=== PATIENT | female | born 1995 | race Caucasian/White ===

== ENCOUNTER 2016-07-02 10:39 | Emergency (ER) | payer OTHER ==
[2016-07-02 11:02] VITALS: BP 112/60
--- NOTE | 2016-07-02 11:08 | ER Document Report ---
ED Medical Screen (RME) - General Stated Complaint: BACK,NECK PAIN Notes: She states initial injury occurred 2 months ago. Patient has been seen by [facility]ropractor. Patient was also seen by the emergency room at [facility]. Since June 28 she has been having increased pain which is radiating down her legs. Patient states she has also missed her period , home test was negative. I have greeted and performed a rapid initial assessment of this patient. A comprehensive ED assessment and evaluation of the patient, analysis of test results and completion of the medical decision making process will be conducted by additional ED providers. - Related Data Allergies/Adverse Reactions: No Known Allergies Allergy (Unverified 07/02/16 11:07) Physical Exam - Vital signs Vitals: Temp Pulse Resp BP Pulse Ox 98.7 F 61 20 112/60 100 07/02/16 11:01 07/02/16 11:01 07/02/16 11:01 07/02/16 11:01 07/02/16 11:01 Course - Vital Signs Vital signs: Temp Pulse Resp BP Pulse Ox 98.7 F 61 20 112/60 100 07/02/16 11:01 07/02/16 11:01 07/02/16 11:01 07/02/16 11:01 07/02/16 11:01
--- NOTE | 2016-07-02 12:34 | ER Document Report ---
ED General - General Chief Complaint: Back Pain Stated Complaint: BACK,NECK PAIN Mode of Arrival: Ambulatory Information source: Patient Notes: Patient presents with multiple complaints today. Patient states that she was doing yoga with her spouse 2 months ago and was dropped hitting her neck and head on the floor. Patient states that she did not initially have any loss of consciousness. Patient states she has had pain to the neck off and on since that fall. Patient did see a primary doctor a week after the injury and saw a chiropractor for the same issue 5 days ago. Patient also reports that she has had joint pain to the small joints of her hands and feet over the past week, and occasional shooting pains down by lateral lower extremities. Patient complains of foot pain with standing only that resolves when she takes the weight off of her feet. Patient reports headache, fatigue and dizziness off and on for the past year and a half. Patient reports she had a rash to her chest that has resolved today. Patient additionally reports some night sweats off and on over the past year and a half as well. Patient denies any fever, cough, cold symptoms, or abdominal pain. She does report recent travel to [place] and return to week ago, but states most of her symptoms started prior to her trip out of country. TRAVEL OUTSIDE OF THE [place] IN LAST 30 DAYS: Yes COUNTRY TRAVELED TO/FROM: [facility] - [facility] Onset: Other - Neck pain 2 months, leg pain for 1 week, dizziness, night sweats for the past year and a half Onset/Duration: Waxing and waning Quality of pain: Burning Pain Level: 4 Associated symptoms: Body/muscle aches, Headache, Sweating. denies: Nonproductive cough, Productive cough, Diarrhea, Fever, Nausea, Vomiting, Shortness of breath - Night sweats Exacerbated by: Standing - Foot pain worse with standing Relieved by: Sitting - Foot pain relieved with sitting Similar symptoms previously: No Recently seen / treated by doctor: Yes - Related Data Allergies/Adverse Reactions: No Known Allergies Allergy (Unverified 07/02/16 11:07) Past Medical History - General Information source: Patient - Social History Smoking Status: Never Smoker Chew tobacco use (# tins/day): No Frequency of alcohol use: Occasional Drug Abuse: None Occupation: guidance consultant Lives with: Spouse/Significant other Family History: Reviewed & Not Pertinent Patient has suicidal ideation: No Patient has homicidal ideation: No - Medical History Medical History: Negative Renal/ Medical History: Denies: Hx Peritoneal Dialysis Past Surgical History: Reports: Hx Cardiac Surgery - Transposition of the greater vessels Review of Systems - Review of Systems Constitutional: Chills. denies: Fever, Weakness, Recent illness EENT: No symptoms reported. denies: Sinus discharge, Throat pain Cardiovascular: Dizziness - Off and on for 1-1/2 year. denies: Chest pain Respiratory: No symptoms reported. denies: Cough, Short of breath Gastrointestinal: No symptoms reported. denies: Abdominal pain, Diarrhea, Nausea, Vomiting Genitourinary: No symptoms reported. denies: Dysuria, Flank pain Female Genitourinary: No symptoms reported. denies: Vaginal discharge Musculoskeletal: Joint pain - Bilateral hands and feet, Muscle pain - Bilateral leg pain off and on, Neck pain Skin: Rash - Anterior chest last night, now resolved Hematologic/Lymphatic: No symptoms reported Neurological/Psychological: Headaches - Off and on. denies: Numbness Physical Exam - Vital signs Vitals: Temp Pulse Resp BP Pulse Ox 98.7 F 61 20 112/60 100 07/02/16 11:01 07/02/16 11:01 07/02/16 11:01 07/02/16 11:01 07/02/16 11:01 - General General appearance: Appears well, Alert In distress: None - HEENT Head: Normocephalic, Atraumatic Eyes: Normal Conjunctiva: Normal Extraocular movements intact: Yes Pupils: PERRL Ears: Normal External canal: Normal Tympanic membrane: Normal Nasal: Normal Mouth/Lips: Normal Mucous membranes: Normal Pharynx: Normal. No: Erythema, Tonsillar hypertrophy Neck: Supple, Other - Patient with posterior cervical paraspinal tenderness near C7. No: Lymphadenopathy, Meningismus - Respiratory Respiratory status: No respiratory distress Chest status: Nontender Breath sounds: Normal. No: Rales, Rhonchi, Stridor, Wheezing Chest palpation: Normal - Cardiovascular Rhythm: Regular Heart sounds: S1 appreciated, S2 appreciated Murmur: No - Abdominal Inspection: Normal - Back Back: Normal, Nontender - Extremities General upper extremity: Normal inspection, Normal strength General lower extremity: Normal inspection, Normal strength Ankle: Normal Foot: Normal - Neurological Neuro grossly intact: Yes Cognition: Normal Orientation: AAOx4 Dolly Coma Scale Eye Opening: Spontaneous Dolly Coma Scale Verbal: Oriented Dolly Coma Scale Motor: Obeys Commands Dolly Coma Scale Total: 15 Speech: Normal Cranial nerves: Normal. No: Tongue deviation Cerebellar coordination: Normal Motor strength normal: LUE, RUE, LLE, RLE - Psychological Associated symptoms: Normal affect, Normal mood - Skin Skin Temperature: Warm Skin Moisture: Dry Skin Color: Normal Skin irregularity: negative: Rash Course - Re-evaluation Re-evalutation: 07/02/16 12:[address] Carbone regarding patient presentation and diagnostic evaluation. 07/02/16 14:[address] Carbone regarding patient's diagnostic test results. Recommends outpatient follow-up with snap attacher as well as primary DrAnish for further evaluation. 07/02/16 14:45 Appointment was made for patient of Dr. Tavarez's office for July 07 at 3:45 PM - Vital Signs Vital signs: Temp Pulse Resp BP Pulse Ox 98.7 F 61 20 112/60 100 07/02/16 11:01 07/02/16 11:01 07/02/16 11:01 07/02/16 11:01 07/02/16 11:01 - Laboratory Result Diagrams: 07/02/16 12:55 07/02/16 12:55 Laboratory results interpreted by me: 07/02/16 07/02/16 12:55 12:55 WBC 1.7 L Hct 35.8 L Plt Count 139 L Metamyelocytes % 1 H Abs Neuts (Manual) 1.0 L AST 63 H ALT 95 H C-Reactive Protein 31.5 H Labs- Entire Visit 07/02/16 07/02/16 07/02/16 11:15 11:15 12:55 WBC 1.7 L RBC 4.09 Hgb 12.7 Hct 35.8 L MCV 88 MCH 31.0 MCHC 35.4 RDW 12.8 Plt Count 139 L Total Counted 100 Seg Neutrophils % Not Reportable Seg Neuts % (Manual) 54 Band Neutrophils % 5 Lymphocytes % Not Reportable Lymphocytes % (Manual) 25 Atypical Lymphs % 3 Monocytes % Not Reportable Monocytes % (Manual) 12 Eosinophils % Not Reportable Eosinophils % (Manual) 0 Basophils % Not Reportable Basophils % (Manual) 0 Metamyelocytes % 1 H Absolute Neutrophils Not Reportable Abs Neuts (Manual) 1.0 L Absolute Lymphocytes Not Reportable Abs Lymphs (Manual) 0.5 Absolute Monocytes Not Reportable Abs Monocytes (Manual) 0.2 Absolute Eosinophils Not Reportable Absolute Eos (Manual) 0.0 Absolute Basophils Not Reportable Abs Basophils (Manual) 0.0 Platelet Comment ADEQUATE Polychromasia SLIGHT Poikilocytosis 1+ Ovalocytes 1+ ESR 18 Sodium Potassium Chloride Carbon Dioxide Anion Gap BUN Creatinine Est GFR ( Amer) Est GFR (Non-Af Amer) Glucose Calcium Total Bilirubin Direct Bilirubin Indirect Bilirubin Neonat Total Bilirubin AST ALT Alkaline Phosphatase Creatine Kinase C-Reactive Protein Total Protein Albumin TSH Urine Color STRAW Urine Appearance CLEAR Urine pH 7.0 Ur Specific [place] 1.004 Urine Protein NEGATIVE Urine Glucose (UA) NEGATIVE Urine Ketones NEGATIVE Urine Blood NEGATIVE Urine Nitrite NEGATIVE Urine Bilirubin NEGATIVE Urine Urobilinogen NEGATIVE Ur Leukocyte Esterase NEGATIVE Urine WBC (Auto) 1 Urine RBC (Auto) 0 U Hyaline Cast (Auto) 1 Urine Bacteria (Auto) 3+ Squamous Epi Cells Auto <1 Urine Ascorbic Acid NEGATIVE Urine HCG, Qual NEGATIVE Rheumatoid Factor 07/02/16 07/02/16 07/02/16 12:55 12:55 12:55 WBC RBC Hgb Hct MCV MCH MCHC RDW Plt Count Total Counted Seg Neutrophils % Seg Neuts % (Manual) Band Neutrophils % Lymphocytes % Lymphocytes % (Manual) Atypical Lymphs % Monocytes % Monocytes % (Manual) Eosinophils % Eosinophils % (Manual) Basophils % Basophils % (Manual) Metamyelocytes % Absolute Neutrophils Abs Neuts (Manual) Absolute Lymphocytes Abs Lymphs (Manual) Absolute Monocytes Abs Monocytes (Manual) Absolute Eosinophils Absolute Eos (Manual) Absolute Basophils Abs Basophils (Manual) Platelet Comment Polychromasia Poikilocytosis Ovalocytes ESR Sodium 140.6 Potassium 4.3 Chloride 101 Carbon Dioxide 28 Anion Gap 12 BUN 11 Creatinine 0.69 Est GFR ( Amer) > 60 Est GFR (Non-Af Amer) > 60 Glucose 81 Calcium 9.7 Total Bilirubin 0.9 Direct Bilirubin 0.1 Indirect Bilirubin Not Reportable Neonat Total Bilirubin Not Reportable AST 63 H ALT 95 H Alkaline Phosphatase 97 Creatine Kinase 62 C-Reactive Protein 31.5 H Total Protein 7.0 Albumin 4.5 TSH 1.95 Urine Color Urine Appearance Urine pH Ur Specific [place] Urine Protein Urine Glucose (UA) Urine Ketones Urine Blood Urine Nitrite Urine Bilirubin Urine Urobilinogen Ur Leukocyte Esterase Urine WBC (Auto) Urine RBC (Auto) U Hyaline Cast (Auto) Urine Bacteria (Auto) Squamous Epi Cells Auto Urine Ascorbic Acid Urine HCG, Qual Rheumatoid Factor NEGATIVE 07/02/16 15:12 - Diagnostic Test Radiology reviewed: Reports reviewed Discharge - Discharge Clinical Impression: Thrombocytopenia, Liver function test abnormality, Neck pain, Leg pain, bilateral Leukopenia Qualifiers: Leukopenia type: unspecified Qualified Code(s): D72.819 - Decreased white blood cell count, unspecified Joint pain Qualifiers: Joint pain location: unspecified Qualified Code(s): M25.50 - Pain in unspecified joint Condition: Stable Disposition: HOME, SELF-CARE Instructions: Neck Injury (Cervical Strain) ([facility]), Myalagia (Muscle Pain) ([facility]) , Arthralgia ([facility]), Thrombocytopenia ([facility]) Additional Instructions: Return immediately for any new or worsening symptoms Followup with your primary care provider, call today to make a followup appointment Follow up with Dr. Tavarez on July 07 at 345. Forms: Return to Work Referrals: DERRICK TAVAREZ MD [ACTIVE STAFF] - 07/07/16 [facility] [Provider Group] - Follow up in 3-5 days
[2016-07-02 12:42] LABS: APPEARANCE,URINE CLEAR; BILIRUBIN,URINE NEGATIVE (NEGATIVE); GLUCOSE, URINE NEGATIVE (NEGATIVE); KETONES,URINE NEGATIVE (NEGATIVE); LEUKOCYTE ESTERASE,URINE NEGATIVE (NEGATIVE); NITRITE,URINE NEGATIVE (NEGATIVE); PROTEIN,URINE NEGATIVE (NEGATIVE); URINE SPECIFIC GRAVITY 1.004; UROBILINOGEN,URINE NEGATIVE mg/dL (<2.0)
[2016-07-02 13:17] LABS: HEMATOCRIT 35.8 % (36.0-47.0); HEMOGLOBIN 12.7 g/dL (12.0-15.5); HGB HCT DIFFERENCE 2.3; MEAN CORPUSCULAR HGB CONC 35.4 g/dL (32.0-36.0); MEAN CORPUSCULAR VOLUME 88 fl (80-97); RED BLOOD COUNT 4.09 10^6/uL (3.72-5.28); RED CELL DISTRIBUTION WIDTH 12.8 % (11.5-14.0)
[2016-07-02 13:36] LABS: ALANINE AMINOTRANSFERASE 95 U/L (9-52); ALBUMIN 4.5 g/dL (3.5-5.0); ALKALINE PHOSPHATASE 97 U/L (38-126); ANION GAP 12 (5-19); ASPARTATE AMINO TRANSFERASE 63 U/L (14-36); BILIRUBIN,DIRECT 0.1 mg/dL (0.0-0.4); BILIRUBIN,TOTAL 0.9 mg/dL (0.2-1.3); BLOOD UREA NITROGEN 11 mg/dL (7-20); C-REACTIVE PROTEIN 31.5 mg/L (<10.0); CALCIUM 9.7 mg/dL (8.4-10.2); CARBON DIOXIDE 28 mmol/L (22-30); CHLORIDE 101 mmol/L (98-107); CREATINE KINASE 62 U/L (30-135); CREATININE RESULT 0.69 mg/dL (0.52-1.25); GLUCOSE 81 mg/dL (75-110); POTASSIUM 4.3 mmol/L (3.6-5.0); SODIUM 140.6 mmol/L (137-145)
[2016-07-02 14:04] LABS: BAND NEUTROPHILS % (MANUAL) 5 % (3-5); BASOPHILS % (MANUAL) 0 % (0-2); EOSINOPHILS % (MANUAL) 0 % (0-6); LYMPHOCYTES % (MANUAL) 25 % (13-45); TOTAL CELLS COUNTED 100
[2016-07-02 14:07] LABS: OVALOCYTES 1+; POIKILOCYTOSIS 1+; POLYCHROMASIA SLIGHT
[2016-07-02 14:08] LABS: WHITE BLOOD COUNT 1.7 10^3/uL (4.0-10.5)
[2016-07-02 14:18] LABS: ERYTHROCYTE SEDIMENTATION RATE 18 mm/hr (0-20)
[2016-07-05 13:31] LABS: PATH REVIEW PATHOLOGIST REVIEWED
[2016-07-06 07:18] LABS: LYME DISEASE IGG AND IGM AB <0.91 ISR (0.00-0.90)
== END 2016-07-02 14:59 | disposition home or self-care (01) ==
LOC: ER 10:39
DX: M54.2 Cervicalgia (principal); W17.89XA Other fall from one level to another, initial encounter; Y93.42 Activity, yoga; D72.819 Decreased white blood cell count, unspecified; D69.6 Thrombocytopenia, unspecified; M25.542 Pain in joints of left hand; M25.541 Pain in joints of right hand; M25.572 Pain in left ankle and joints of left foot; M25.571 Pain in right ankle and joints of right foot; M79.1 Myalgia; R51 Headache; R42 Dizziness and giddiness; R61 Generalized hyperhidrosis; R53.83 Other fatigue; R79.89 Other specified abnormal findings of blood chemistry
CPT/HCPCS: 36415; 72050; 80053; 81001; 81025; 82550; 84443; 85025; 85652; 86038; 86140; 86430; 86617; 86618; 99284

== ENCOUNTER → 2016-07-06 | Outpatient (CLI) | payer OTHER | LOC: OD 13:09 | PROVIDERS: ATTEND Physician Assistant | DX: R50.9 Fever, unspecified (principal) | CPT/HCPCS: 71020 ==